=== PATIENT | female | born 1995 | race Caucasian/White ===

== ENCOUNTER 2018-08-10 21:44 | Emergency (ER) | payer OTHER ==
[2018-08-10 22:06] VITALS: BP 121/67
--- NOTE | 2018-08-10 22:43 | ED Physician Documentation ---
General Adult - HISTORIAN Historian: patient, spouse - HPI Stated Complaint: Lt sided abdominal pain Chief Complaint: General Adult Additional Information: "Left ovary pain" for 2-3 months. Seen in [facility] ER 2 weeks ago and noted to be . US at that time showed IUP. 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 Took a hot bath after supper this evening and when she got out of water, felt like she was leaking fluid, pain intensified, and she felt a know in left abdomen. Denies contraction or bleeding. . LNMP May, but had spotting end of June. No fevers or dysuria. No other modifying factors or associated signs. - ROS CONST: denies: fever - PAST HX Past History: none Surgeries/Procedures: , cholecystectomy Allergies/Adverse Reactions: Allergies Allergy/AdvReac Type Severity Reaction Status Date / Time No Known Allergies Allergy Verified 08/10/18 22:00 Home Medications: Ambulatory Orders Medication Instructions Recorded NK 08/10/18 - SOCIAL HX Smoking History: non-smoker - FAMILY HX Family History: No - VITAL SIGNS Vital Signs: Vital Signs Temp Pulse Resp BP Pulse Ox 98 F 78 16 121/67 99 08/10/18 21:48 08/10/18 21:48 08/10/18 21:48 08/10/18 21:48 08/10/18 21:48 - REVIEWED ASSESSMENTS Nursing Assessment Reviewed: Yes Vitals Reviewed: Yes Progress - Progress Progress: US 2 weeks ago did not show abnormality per pt and . Not leaking amniotic fluid. Appt with OB in 2 weeks. ED Results Lab/Radiology - Orders Orders: ED Orders Category Date Time Status URINALYSIS Routine Lab 08/10/18 Ordered URINE HCG [URINE HCG] Stat Lab 08/10/18 22:18 Ordered General Adult Physical Exam - PHYSICAL EXAM GENERAL APPEARANCE: mild distress (anxious) EENT: eye inspection normal, ENT inspection normal NECK: normal inspection, supple RESPIRATORY: breath sounds normal CVS: reg rate & rhythm, no murmur ABDOMEN: soft, no organomegaly, normal bowel sounds, non-tender, other (Vaginal pH 4-5 ) BACK: normal inspection, no CVA tenderness, other (no vertebral tenderness) SKIN: warm/dry, normal color EXTREMITIES: non-tender, normal range of motion (gait and stance), no evidence of injury NEURO: CN's nml as tested, motor nml, sensation nml, cognition normal Discharge Clincal Impression: Left sided abdominal pain Referrals: Primary Doctor,Lou [Primary Care Provider] - 2 Days Additional Instructions: Keep your OB appointment in two days. See your provider or return to the ER if you have contractions or spotting. Condition: Good Disposition: 01 HOME, SELF-CARE Decision to Admit: NO Decision Time: 22:42
[2018-08-11 11:10] LABS: APPEARANCE,URINE CLEAR (CLEAR); COLOR,URINE YELLOW (YELLOW); OCCULT BLOOD,URINE NEGATIVE (NEGATIVE); UROBILINOGEN URINE 0.2 Eu (0.2-1.0)
[2018-08-11 11:11] LABS: URINE HCG POSITIVE (NEGATIVE)
== END 2018-08-10 22:42 | disposition home or self-care (01) ==
LOC: ED 21:44
DX: R10.32 Left lower quadrant pain (principal); Z33.3 Pregnant state, gestational carrier
CPT/HCPCS: 81002; 81025

== ENCOUNTER 2019-06-13 10:51 | Emergency (ER) | payer OTHER ==
[2019-06-13 11:03] VITALS: BP 126/55
--- NOTE | 2019-06-13 11:57 | ED Physician Documentation ---
Abscess - HISTORIAN Historian: patient - HPI Stated Complaint: Abcess Chief Complaint: Abscess (Redness/swelling to left inner thigh) Additional Information: Patient is a 23 year old female who presents to the ER with c/o "abscess" to the left inner thigh. She states it started 2 weeks ago. Area is small in circumference with redness/erythema. There is no "head"- not ready for lancing. Educated on apply moist heat and starting antibiotic. Patient wants it lanced but there is nothing to radha (not ready); tried to educate. Reeducated on warm moist heat and taking antibiotic.. Onset: other (2 weeks ago) Timing: still present Duration: persistent since Location: LLE Quality: itchy Identified Cause?: No When Did Symptoms Start: 05/30/19 Where: home Context: Medication Exposure: none Context: Food Exposure: none - ROS CONST: none CVS/RESP: none EYES/ENT: none GI/: none MS/SKIN/LYMPH: none NEURO/PSYCH: none - PAST HX Past History: none Other History: none Surgeries/Procedures: No Immunizations: UTD Allergies/Adverse Reactions: Allergies Allergy/AdvReac Type Severity Reaction Status Date / Time No Known Allergies Allergy Verified 06/13/19 11:04 Home Medications: Ambulatory Orders Medication Instructions Recorded Cephalexin [Keflex] 500 mg PO Q6H #40 capsule 06/13/19 - SOCIAL HX Smoking History: greater than 1 pack/day Alcohol Use: none Drug Use: none - FAMILY HX Family History: none - VITAL SIGNS Vital Signs: Vital Signs Temp Pulse Resp BP Pulse Ox 97.0 F L 76 16 126/55 100 06/13/19 11:13 06/13/19 11:13 06/13/19 11:13 06/13/19 11:13 06/13/19 11:13 - REVIEWED ASSESSMENTS Nursing Assessment Reviewed: Yes Vitals Reviewed: Yes Abscess Physical Exam - EXAM General Appearance: no acute distress, alert Skin: warm,dry Location: extremities (left medial thigh) Character: erythematous Symptoms: tenderness Extremities: non-tender, nml ROM EENT: eyes nml inspection, lips nml Neck: trachea midline Respiratory: breath sounds normal CVS: heart sounds nml Abdomen: nml bowel sounds Neuro/Psych: oriented x3, CN's nml as tested, motor nml, sensation nml, mood/affect nml Discharge Clincal Impression: Cellulitis of left thigh Prescriptions: Cephalexin [Keflex] 500 mg PO Q6H #40 capsule Referrals: Primary Doctor,No [Primary Care Provider] - 2 Days Additional Instructions: Take Cephalexin 500 mg by mouth every 6 hours Use warm moist heat Alternate Tylenol and Ibuprofen as needed for discomfort Follow up with PCP next week Condition: Good Disposition: 01 HOME, SELF-CARE Decision to Admit: NO Decision Time: 11:58
== END 2019-06-13 11:13 | disposition home or self-care (01) ==
LOC: ED 10:51
DX: L03.116 Cellulitis of left lower limb (principal)